=== PATIENT | female | born 1980 | race Hispanic/Latino ===

== ENCOUNTER 2017-12-22 20:02 | Emergency (ER) | payer MEDICAID ==
[2017-12-22 20:02] VITALS: BMI 33.7
[2017-12-22 20:20] VITALS: TEMP 98.3
--- NOTE | 2017-12-22 20:23 | ED PDOC ---
Arrival/HPI - General Chief Complaint: Shortness Of Breath Time Seen by Provider: 12/22/17 20:22 Historian: Patient - History of Present Illness Narrative History of Present Illness (Text): 12/22/17 20:23 37 year old female, with no significant past medical history, who presents to the emergency department complaining of SOB since yesterday. Patient saw PMD, Dr. Lozada, for SOB yesterday. Patient got an Xray today but SOB persisted so patient came to emergency department. Patient experiences episodes where she can 't catch her breath. Patient states it is similar to previous anxiety attacks but dissimilar in that these episodes are more frequent and shorter. Patient denies any fevers, chills, chest pain, abdominal pain, nausea, vomiting, diarrhea, back pain, neck pain, headache, dizziness, or any other complaint. Time/Duration: Other (2 days) Symptom Onset: Sudden Symptom Course: Unchanged Activities at Onset: Light Context: Home Past Medical History - Provider Review Nursing Documentation Reviewed: Yes - Infectious Disease Hx of Infectious Diseases: None - Past Medical History Past Medical History: No Previous - Gastrointestinal Hx Hemorrhoids: Yes - Psychiatric Hx Psychophysiologic Disorder: No Hx Anxiety: Yes Hx Depression: No Hx Emotional Abuse: No Hx Physical Abuse: No Hx Substance Use: No - Surgical History Hx Section: Yes (x2) - Anesthesia Hx Anesthesia: No Hx Anesthesia Reactions: No Hx Malignant Hyperthermia: No - Suicidal Assessment Feels Threatened In Home Enviroment: No Family/Social History - Physician Review Nursing Documentation Reviewed: Yes Family/Social History: Unknown Family HX Smoking Status: Light Smoker < 10 Cigarettes Daily Hx Alcohol Use: No Hx Substance Use: No Hx Substance Use Treatment: No Allergies/Home Meds Allergies/Adverse Reactions: Allergies No Known Allergies Allergy (Verified 12/22/17 20:19) Home Medications: Home Meds Medication Instructions Recorded Confirmed Azithromycin [Zithromax] 1 tab PO DAILY 12/22/17 12/22/17 Levocetirizine Dihydrochloride 1 tab PO DAILY 12/22/17 12/22/17 [Xyzal] Montelukast [Singulair] 1 tab PO DAILY 12/22/17 12/22/17 Review of Systems - Physician Review All systems were reviewed & negative as marked: Yes - Review of Systems Eyes: absent: Vision Changes ENT: absent: Hearing Changes Respiratory: SOB. absent: Cough Cardiovascular: absent: Chest Pain, Palpitations Gastrointestinal: absent: Abdominal Pain, Diarrhea, Nausea, Vomiting Genitourinary Female: absent: Dysuria, Frequency, Hematuria Musculoskeletal: absent: Back Pain, Neck Pain Skin: absent: Rash Neurological: absent: Headache, Dizziness Psychiatric: Anxiety Physical Exam Vital Signs Reviewed: Yes Vital Signs Temp Pulse Resp BP Pulse Ox 12/22/17 21:22 53 L 16 108/67 99 12/22/17 20:13 98.3 F 67 18 122/59 L 100 Temperature: Afebrile Blood Pressure: Normal Pulse: Regular Respiratory Rate: Normal Appearance: Positive for: Well-Appearing, Non-Toxic, Comfortable Pain Distress: None Mental Status: Positive for: Alert and Oriented X 3 - Systems Exam Head: Present: Atraumatic, Normocephalic Pupils: Present: PERRL Extroacular Muscles: Present: EOMI Conjunctiva: Present: Normal Mouth: Present: Moist Mucous Membranes Neck: Present: Normal Range of Motion. No: Meningeal Signs, MIDLINE TENDERNESS , JVD Respiratory/Chest: Present: Clear to Auscultation, Good Air Exchange. No: Respiratory Distress, Accessory Muscle Use Cardiovascular: Present: Regular Rate and Rhythm, Normal S1, S2. No: Murmurs Abdomen: No: Tenderness, Distention, Peritoneal Signs Back: Present: Normal Inspection. No: CVA Tenderness, Midline Tenderness, Paraspinal Tenderness Upper Extremity: Present: Normal Inspection. No: Cyanosis, Edema Lower Extremity: Present: Normal Inspection. No: Edema Neurological: Present: GCS=15, CN II-XII Intact, Speech Normal Skin: Present: Warm, Dry, Normal Color. No: Rashes Psychiatric: Present: Alert, Oriented x 3, Normal Insight, Normal Concentration Medical Decision Making ED Course and Treatment: 12/22/17 21:04 Impression: 37 year old female presents to the emergency department complaining of shortness of breath since yesterday. Reviewed cxray that was performed today and it is negative for pneumonia or infiltrate Plan: -- Labs -- D-Dimer -- Reassess and disposition Progress Notes: 12/22/17 21:21 EKG reviewed, shows Sinus Bradycardia at [address]/T wave changes. 12/22/17 22:06 Labs grossly normal 12/22/17 22:07 - Lab Interpretations Lab Results: 12/22/17 21:35 12/22/17 21:35 Lab Results 12/22/17 21:35: Sodium 142, Potassium 3.8, Chloride 105, Carbon Dioxide 25, Anion Gap 15, BUN 10, Creatinine 0.7, Est GFR ( Amer) > 60, Est GFR (Non- Af Amer) > 60, Random Glucose 94, Calcium 9.7, Total Bilirubin 0.6, AST 26, ALT 43, Alkaline Phosphatase 37 L, Total Protein 6.9, Albumin 4.2, Globulin 2.7, Albumin/Globulin Ratio 1.5 12/22/17 21:35: WBC 6.7, RBC 4.15, Hgb 13.0, Hct 37.7, MCV 90.8, MCH 31.3, MCHC 34.5, RDW 12.4, Plt Count 168, MPV 10.4, Gran % 65.2, Lymph % (Auto) 27.4, [place] % (Auto) 6.4 H, Eos % (Auto) 0.9 L, Baso % (Auto) 0.1, Gran # 4.34, Lymph # ( Auto) 1.8, [place] # (Auto) 0.4, Eos # (Auto) 0.1, Baso # (Auto) 0.01 - Scribe Statement The provider has reviewed the documentation as recorded by the Scribe Alexsandra Zamora All medical record entries made by the Scribe were at my direction and personally dictated by me. I have reviewed the chart and agree that the record accurately reflects my personal performance of the history, physical exam, medical decision making, and the department course for this patient. I have also personally directed, reviewed, and agree with the discharge instructions and disposition. Disposition/Present on Arrival - Present on Arrival Any Indicators Present on Arrival: No History of DVT/PE: No History of Uncontrolled Diabetes: No Urinary Catheter: No History of Decub. Ulcer: No History Surgical Site Infection Following: None - Disposition Have Diagnosis and Disposition been Completed?: Yes Diagnosis: Shortness of breath Disposition: HOME/ ROUTINE Disposition Time: 22:04 Patient Plan: Discharge Patient Problems: Current Active Problems Problem Status Onset Shortness of breath Acute Condition: GOOD Additional Instructions: Follow-up with Dr. Lozada within 2 days. Finish full course of azithromycin. Return to ED if condition worsens. Referrals: Maki Lozada MD [Primary Care Provider] - Follow up with primary Forms: [employer] ([place])
[2017-12-22 21:23] VITALS: BP 108/67; RESP 16
[2017-12-22 21:48] LABS: BASO # 0.01 K/mm3 (0.0-2.0); BASO % 0.1 % (0.0-3.0); EOS # 0.1 (0.0-0.7); EOS % 0.9 % (1.5-5.0); GRAN # 4.34 (1.4-6.5); GRAN % 65.2 % (50.0-68.0); LYMPH # 1.8 (1.2-3.4); LYMPH % 27.4 % (22.0-35.0); MEAN CELL VOLUME 90.8 fl (80.0-105.0); MEAN CORPUSCULAR HEMOGLOBIN 31.3 pg (25.0-35.0); MEAN CORPUSCULAR HGB CONC 34.5 g/dl (31.0-37.0); MEAN PLATELET VOLUME 10.4 fl (7.0-11.0); MONO # 0.4 (0.1-0.6); MONO % 6.4 % (1.0-6.0); RBC 4.15 10^6/uL (3.5-6.1); RED CELL DISTRIBUTION WIDTH 12.4 % (11.5-14.5); WHITE BLOOD COUNT 6.7 10^3/ul (4.5-11.0)
[2017-12-22 22:03] LABS: ALB/GLOB RATIO 1.5 (1.1-1.8); ALBUMIN 4.2 g/dL (3.0-4.8); ALT/SGPT 43 U/L (7-56); AST/SGOT 26 U/L (14-36); BLOOD UREA NITROGEN 10 mg/dL (7-21); CALCIUM 9.7 mg/dL (8.4-10.5); GFR AFRICAN-AMERICAN > 60; GFR NON-AFRICAN AMERICAN > 60
[2017-12-22 23:07] VITALS: PULSE 57; O2SAT 100
--- NOTE | 2017-12-23 11:18 | CARD ---
APPROVED REPORT EKG Measurement Heart [id number] <Conclusion> Sinus bradycardia Otherwise normal ECG
== END 2017-12-22 23:05 | disposition home or self-care (01) ==
LOC: ED 20:02
DX: R06.02 Shortness of breath (principal); F17.210 Nicotine dependence, cigarettes, uncomplicated